=== PATIENT | male | born 1985 | race Two or more races ===

== ENCOUNTER 2024-04-25 17:09 | Emergency (ER) | payer MEDICAID, OTHER ==
[~2024-04-25] VITALS: Ht 165.1 cm; Wt 90.7 kg
[2024-04-25] MEDS ORDERED: KETO10TA2 PO (20:57)
[2024-04-25] MEDS ORDERED: BACL10TA PO (20:57)
[2024-04-25 20:59] VITALS: BP 110/72; TEMP 98.2; O2SAT 98
== END 2024-04-25 21:27 | disposition home or self-care (01) ==
LOC: ER 17:48
DX: S32.018A Other fracture of first lumbar vertebra, initial encounter for closed fracture (principal); Z60.2 Problems related to living alone; V29.99XA Rider (driver) (passenger) of other motorcycle injured in unspecified traffic accident, initial encounter; Y93.89 Activity, other specified; Y92.488 Other paved roadways as the place of occurrence of the external cause; Y99.8 Other external cause status
CPT/HCPCS: 72131-TC